=== PATIENT | female | born 1940 | race Caucasian/White ===

== ENCOUNTER 2021-08-24 10:36 | Outpatient (CLI) | payer OTHER | END 2021-08-24 10:45 | disposition home or self-care (01) | LOC: RAD 10:36 | PROVIDERS: ATTEND Orthopaedic Surgery | DX: M54.50 Low back pain, unspecified (principal) ==

== ENCOUNTER 2021-08-24 12:26 | Outpatient (CLI) | payer OTHER | END 2021-08-24 12:27 | disposition home or self-care (01) | LOC: LAB 12:26 | PROVIDERS: ATTEND Orthopaedic Surgery | DX: E55.9 Vitamin D deficiency, unspecified (principal); M85.9 Disorder of bone density and structure, unspecified; E56.1 Deficiency of vitamin K; M81.8 Other osteoporosis without current pathological fracture ==

== ENCOUNTER 2021-10-14 10:57 | Outpatient (CLI) | payer OTHER | END 2021-10-14 11:08 | disposition home or self-care (01) | LOC: RAD 10:57 | PROVIDERS: ATTEND Orthopaedic Surgery | DX: M17.12 Unilateral primary osteoarthritis, left knee (principal) ==